=== PATIENT | male | born 1985 | race Caucasian/White ===

== ENCOUNTER 2021-03-01 20:19 | Emergency (ER) | payer BC ==
[2021-03-01] MEDS ORDERED: Tetracaine HCl/PF 0.5% 4 ML Bottle EYEBOTH ONE (20:35)
--- NOTE | 2021-03-01 21:03 | EDM.PDOC ---
ED HPI GENERAL MEDICAL PROBLEM - General Chief Complaint: Eye Problems Stated Complaint: VISION PROBLEMS Time Seen by Provider: 03/01/21 20:40 Source of Information: Reports: Patient History Limitations: Reports: No Limitations - History of Present Illness INITIAL COMMENTS - FREE TEXT/NARRATIVE: Patient works in [employer] ?[employer]. He works next to the welders. He always wears his safety dark glasses. He states that he has had lasic and his vision is 20/15 both eyes. He does not remember any exposure to welding flash but states it is possible. He went to have a quick rest on his break. When he awoke his vision was blurry bilaterally. he did not have any drainage from the eyes. Tried washing out the eyes on the chance that he got something in them but did not help, actually make it worse. has photophobia. vision at triage was 20/20 but states the eyes hurt. Has not rubbed his eyes. No head trauma, no curtain like shade or loss of central vision. No real eye pain, just irritation Onset: Today, Sudden Location: Reports: Face Severity: Moderate - Related Data Allergies Allergy/AdvReac Type Severity Reaction Status Date / Time No Known Allergies Allergy Verified 03/01/21 20:21 Home Meds: Home Meds . [No Known Home Meds] 03/01/21 [History] Social & Family History - Tobacco Use Tobacco Use Status *Q: Never Tobacco User - Alcohol Use Alcohol Use History: No - Recreational Drug Use Recreational Drug Use: No Drug Use in Last 12 Months: No ED ROS GENERAL - Review of Systems Review Of Systems: Comprehensive ROS is negative, except as noted in HPI. Constitutional: Reports: No Symptoms HEENT: Reports: Eye Pain. Denies: Ear Discharge, Eye Discharge, Glasses, Hearing Loss Respiratory: Reports: No Symptoms Cardiovascular: Reports: No Symptoms Endocrine: Reports: No Symptoms GI/Abdominal: Reports: No Symptoms : Reports: No Symptoms Musculoskeletal: Reports: No Symptoms Skin: Reports: No Symptoms Neurological: Reports: No Symptoms. Denies: Confusion, Dizziness, Headache, Seizure, Trouble Speaking, Difficulty Walking Psychiatric: Reports: No Symptoms ED EXAM GENERAL W FULL EYE - Physical Exam Exam: See Below Exam Limited By: No Limitations General Appearance: Alert, WD/WN, No Apparent Distress Eye Exam: Bilateral Eye: EOMI, Normal Inspection, PERRL Visual Acuity (R) 20/: 20 Visual Acuity (L) 20/: 20 Eyelids: Bilateral: Normal Appearance Conjunctiva & Sclera: Bilateral: Injected (very minimal lateral bilaterally) Cornea Exam: Bilateral: Normal Appearance Extraocular Movements: Bilateral: Intact Pupillary Size: Bilateral: 3 mm Pupillary Reaction: Bilateral: Brisk Ears: Normal External Exam Nose: Normal Inspection Throat/Mouth: Normal Inspection, Normal Lips, Normal Voice Neck: Normal Inspection Respiratory/Chest: No Respiratory Distress, Lungs Clear Cardiovascular: Regular Rate, Rhythm Neurological: Alert, Oriented, CN II-XII Intact, Normal Cognition, Normal Gait, No Motor/Sensory Deficits (no nystagmus,. brisk pupilary reaction. normal finger to nose with eyes closed. Negative pronator drift. No neurological deficit) ED EYE w/ Add Procedure - Eye Procedure Alcaine Drops Administered: Yes Eye FB Removal: no Removal w/ Cotton Swab, no Removal w/ Needle, no Other Progress: fluorescein strip used with alcaine drops. [place] better after the drops. vison was less blurred. slater light revealed no corenal abrasion, some mild conjucntival irritation probable from the eye wash station Course - Vital Signs Last Recorded V/S: Last Vital Signs Temp 36.1 C 03/01/21 20:26 Pulse 60 03/01/21 20:26 Resp 16 03/01/21 20:26 BP 138/80 03/01/21 20:26 Pulse Ox 98 03/01/21 20:26 - Orders/Labs/Meds Meds: Medications Discontinued Medications Generic Name Dose Route Start Last Admin Trade Name Baljeetq PRN Reason Stop Dose Admin Tetracaine HCl 1 ml 03/01/21 20:35 03/01/21 20:40 Tetracaine Hcl/Pf 0.5% 4 Ml Bottle EYEBOTH 03/01/21 20:36 1 applic ASDIRECTED ONE Administration - Re-Assessments/Exams Free Text/Narrative Re-Assessment/Exam: 03/01/21 21:15 Patient is from [place]. Feels he can drive home now that it is dark and he has the alcaine. Advised one day use, purchase over the counter gel drops. rest eyes tonight and follow up with opthalmology tomorrow if still having problems. Was advised of concerning signs to present to Ed in [place] tonight to include mono loss of vision , diplopia, curtain noted, loss of central vision. Departure - Departure Time of Disposition: 20:52 Disposition: Home, Self-Care 01 Clinical Impression: Irritation of both eyes - Discharge Information *PRESCRIPTION DRUG MONITORING PROGRAM REVIEWED*: Not Applicable *COPY OF PRESCRIPTION DRUG MONITORING REPORT IN PATIENT [facility]IO: Not Applicable Instructions: Photophobia Referrals: PCP,None [Primary Care Provider] - Forms: ED Department Discharge, ED Return to Work/School Form Additional Instructions: No abrasion, burn or foreign body seen in the eye tonight. Use the alcaine drops, two drops to each eye every four hours for the next 24 hours. do not exceed this use and then throw the drops away. Do not touch the surface of the eye with the drops. Purchase Gel eye drops over the counter for lubrication. Do not rub the eyes. REst eyes from, light, especially fluorescent and blue light. If your eyes are not significantly improved tomorrow, see drawing in machine tender helper for focused eye exam. If you note one side loss of vision, a curtain like darkness or loss of vision in the central eye, return to ER in [place] where an 4 h youth development specialist can see you. Sepsis Event Note (ED) - Evaluation Sepsis Screening Result: No Definite Risk - Focused Exam Vital Signs: Vital Signs Temp Pulse Resp BP Pulse Ox 03/01/21 20:26 36.1 C 60 16 138/80 98
== END 2021-03-01 21:10 | disposition home or self-care (01) ==
LOC: LL.ED 20:19
DX: H57.89 Other specified disorders of eye and adnexa (principal)
CPT/HCPCS: 99283

== ENCOUNTER 2023-05-04 15:47 | Emergency (ER) | payer BC, OTHER ==
[2023-05-04] MEDS ORDERED: Sodium Chloride 0.9% 10 ML Syringe FLUSH PRN (15:48)
[2023-05-04] MEDS ORDERED: Pantoprazole 40 MG Vial IVPUSH ONE (15:50)
[2023-05-04 16:07] LABS: BASOPHILS ABSOLUTE AUTO 0.08 K/uL (0.00-0.20); EOSINOPHILS ABSOLUTE AUTO 0.15 K/uL (0.00-0.50); EOSINOPHILS PERCENT AUTO 1.9 % (0.0-5.0); HEMATOCRIT 43.4 % (39.0-49.0); HEMOGLOBIN 14.6 g/dL (13.1-16.8); LYMPHOCYTES ABSOLUTE AUTO 1.72 K/uL (0.50-3.50); LYMPHOCYTES PERCENT AUTO 21.5 % (10.0-50.0); MEAN CORPUSCULAR HEMOGLOBIN 30.2 pg (28.2-33.3); MEAN CORPUSCULAR HGB CONC 33.6 g/dL (31.7-36.0); MEAN CORPUSCULAR VOLUME 89.7 fL (84.0-98.0); MONOCYTES ABSOLUTE AUTO 0.53 K/uL (0.00-1.00); MONOCYTES PERCENT AUTO 6.6 % (2.0-14.0); NEUTROPHILS ABSOLUTE AUTO 5.52 K/uL (1.40-7.00); PLATELET COUNT,PLT 209 K/uL (150-350); RED BLOOD CELL COUNT 4.84 M/uL (4.33-5.41); RED CELL DISTRIBUTION WIDTH 13.6 % (11.2-14.1)
[2023-05-04 17:33] LABS: ALBUMIN 3.9 g/dL (3.4-5.0); ALKALINE PHOSPHATASE 83 IU/L (46-116); ASPARTATE AMNIOTRANSFERASE,AST 21 U/L (15-37); BILIRUBIN TOTAL 0.3 mg/dL (0.2-1.0); BLOOD UREA NITROGEN,BUN 16 mg/dL (7-18); CALCIUM 8.9 mg/dL (8.5-10.1); CARBON DIOXIDE,CO2 25.9 mmol/L (21.0-32.0); CHLORIDE,CL 108 mmol/L (98-107); GLUCOSE RANDOM 101 mg/dL (70-99); PROTEIN TOTAL,TP 6.2 g/dL (6.4-8.2); SODIUM,NA 143 mmol/L (136-145)
[2023-05-04 17:35] LABS: ANION GAP 13.1 meq/L (7-15)
[2023-05-04 17:47] LABS: CREATININE 1.23 mg/dL (0.51-1.17)
[2023-05-04 17:53] LABS: ALANINE AMINOTRANSFERASE,ALT 28 U/L (12-78)
[2023-05-04] MEDS ORDERED: Sodium Chloride 0.9% 1,000 ML IV ONE (18:01)
[2023-05-04 18:11] LABS: APPEARANCE,URINE SLIGHTLY CLOUDY; BILIRUBIN,URINE NEGATIVE (NEGATIVE); COLOR,URINE YELLOW; GLUCOSE,URINE NEGATIVE (NEGATIVE); KETONES,URINE TRACE mg/dL (NEGATIVE); LEUKOCYTE ESTERASE,URINE NEGATIVE (NEGATIVE); NITRITE,URINE NEGATIVE (NEGATIVE); OCCULT BLOOD,URINE NEGATIVE (NEGATIVE); PH,URINE 5.5 (5.0-9.0); PROTEIN,URINE NEGATIVE (NEGATIVE); UROBILINOGEN,URINE 0.2 E.U./dL (0.2-1.0)
== END 2023-05-04 19:40 | disposition home or self-care (01) ==
LOC: LL.ED 15:47
DX: K92.2 Gastrointestinal hemorrhage, unspecified (principal); K21.9 Gastro-esophageal reflux disease without esophagitis; Z79.899 Other long term (current) drug therapy
CPT/HCPCS: 36415; 74018; 80053; 81003; 82272; 83605; 83735; 84484; 85025; 85379; 96374; 99285; C9113; J7030; 99283; J3490

== ENCOUNTER 2023-05-25 08:42 | Day surgery (SDC) | payer BC ==
[2023-05-25] MEDS ORDERED: Sodium Chloride 0.9% 10 ML Syringe FLUSH PRN (08:45)
[2023-05-25] MEDS ORDERED: Lactated Ringers 1,000 ML IV SCH (08:45)
[2023-05-25] MEDS ORDERED: Midazolam 1 MG/ML 2 ML SDV ONE (09:45)
[2023-05-25] MEDS ORDERED: Propofol 200 MG/20 ML SDV ONE (09:45)
== END 2023-05-25 10:59 | disposition home or self-care (01) ==
LOC: LL.SDS 08:42
PROVIDERS: ATTEND Surgery
DX: K57.31 Diverticulosis of large intestine without perforation or abscess with bleeding (principal); K64.8 Other hemorrhoids; K21.9 Gastro-esophageal reflux disease without esophagitis; Z79.899 Other long term (current) drug therapy
CPT/HCPCS: 00812; J2250; J2704; J7120

== ENCOUNTER 2024-05-22 16:52 | Emergency (ER) | payer OTHER ==
[2024-05-22 16:58] VITALS: BP 157/70; PULSE 84
== END 2024-05-22 18:05 | disposition home or self-care (01) ==
LOC: LL.ED 16:52
DX: K43.9 Ventral hernia without obstruction or gangrene (principal); Z87.891 Personal history of nicotine dependence
CPT/HCPCS: 99283